=== PATIENT | female | born 1945 | race Caucasian/White ===

== ENCOUNTER → 2016-04-26 | Outpatient (CLI) | payer OTHER, MEDICARE ==
[2016-04-26 10:45] LABS: CALCIUM 9.4 mg/dL (8.7-10.7); POTASSIUM 4.5 meq/L (3.8-5.2)
== END ==
LOC: MOB LAB 09:38
PROVIDERS: ATTEND Nurse Practitioner Women's Health
DX: I10 Essential (primary) hypertension (principal); M81.0 Age-related osteoporosis without current pathological fracture
CPT/HCPCS: 36415; 80048

== ENCOUNTER → 2016-04-27 | Outpatient (CLI) | payer OTHER, MEDICARE | LOC: MMPC 09:00 | PROVIDERS: ATTEND Nurse Practitioner Women's Health | DX: M81.0 Age-related osteoporosis without current pathological fracture (principal) | CPT/HCPCS: G0463; J0897 ==

== ENCOUNTER → 2016-08-10 | Outpatient (CLI) | payer OTHER, MEDICARE ==
[2016-08-10 17:48] LABS: HEMATOCRIT 37.5 % (37.0-47.0); HEMOGLOBIN 12.8 g/dL (12.0-16.0); MEAN CORPUSCULAR HEMOGLOBIN 28.9 PG (27-31); MEAN CORPUSCULAR HGB CONC 34.1 g/dL (33-37); MEAN CORPUSCULAR VOLUME 84.7 FL (81-99); MEAN PLATELET VOLUME 9.4 FL (7.4-12.2); RED BLOOD COUNT 4.43 10^6/uL (4.20-5.40)
[2016-08-10 18:11] LABS: FREE T4 (FREE THYROXINE) 0.94 ng/dL (0.93-1.71)
[2016-08-10 18:29] LABS: FERRITIN 21.8 ng/mL (12.00-336.70)
== END ==
LOC: MOB LAB 15:05
PROVIDERS: ATTEND Nurse Practitioner Family
DX: D50.9 Iron deficiency anemia, unspecified (principal); H53.2 Diplopia; I10 Essential (primary) hypertension
CPT/HCPCS: 82728; 84439; 84443; 84445; 84481; 85027; 86376; 86800; 99214

== ENCOUNTER → 2016-08-15 | Outpatient (CLI) | payer OTHER, MEDICARE | LOC: MRI 09:52 | PROVIDERS: ATTEND Nurse Practitioner Family | DX: H53.2 Diplopia (principal) | CPT/HCPCS: 36415; 82565; 84520 ==

== ENCOUNTER → 2016-08-16 | Outpatient (CLI) | payer OTHER, MEDICARE ==
--- NOTE | 2016-08-16 22:01 | DI ---
MRI BRAIN SCAN WITHOUT AND WITH IV CONTRAST, 08/16/2016 9:51 AM: Clinical History: Diplopia. Previous Exam: None at this facility. Sequences: Axial and sagittal T1 pre contrast and axial and coronal post contrast; axial T2 and FLAIR . Diffusion weighted images with ADC mapping are also performed. 15 mL of ProHance (279.3 mg/mL) was injected IV. The fourth ventricle is of normal size, shape, position and contour. The third and lateral ventricles are mildly dilated but are otherwise normal. There multiple small punctate hyperintensities in both cerebral hemispheres in the watershed territory in this probably is secondary to mild small vessel is chemic disease. The Virchow-Osvaldo perivascular spaces are quite prominent bilaterally in the cerebral hemispheres as well as in the brainstem but these are still within normal limits. 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 There is no evidence of mass effect on the optic chiasm and there are i s no cavernous carotid aneurysm. There are no abnormal enhancing lesions. Scans through the orbits sh ow no proptosis or evidence of an intraconal or extraconal mass. All of the extraocular muscles are w ell-defined and are normal with the exception of the inferior oblique muscles which are quite small a nd therefore normally difficult to visualize. Diffusion weighted imaging with ADC mapping is normal. There is only mild cerebral atrophy. There are no extracerebral mantels or shift of the midline struc tures. The paranasal sinuses are normal. Readin. There are multiple small punctate hyperintensities in the watershed territories bilaterally that probably represent mild small vessel ischemic disease. The Virchow-Osvaldo perivascular spaces are prom inent in the brainstem as well as the cerebrum but these are still within normal limits. 2. There is no abnormality of the visual pathway from the occipital lobes to the orbits. The extraoc ular muscles are normal and there is no intraconal or extraconal mass. No abnormality of the cavernou s sinus is identified. 3. Mild cerebral atrophy. Incidental finding of an "empty sella".
== END ==
LOC: MRI 09:47
PROVIDERS: ATTEND Nurse Practitioner Family
DX: D49.89 Neoplasm of unspecified behavior of other specified sites (principal); I99.8 Other disorder of circulatory system; G31.9 Degenerative disease of nervous system, unspecified
CPT/HCPCS: 70553

== ENCOUNTER → 2016-10-17 | Outpatient (CLI) | payer OTHER, MEDICARE | LOC: MMPC 09:00 | PROVIDERS: ATTEND Nurse Practitioner Family | DX: I10 Essential (primary) hypertension (principal); F39 Unspecified mood [affective] disorder; K21.9 Gastro-esophageal reflux disease without esophagitis | CPT/HCPCS: 99214 ==

== ENCOUNTER → 2016-10-20 | Outpatient (CLI) | payer OTHER, MEDICARE ==
[2016-10-25 13:32] LABS: IGF1 ZSCORE -0.52 SD (())
== END ==
LOC: MOB LAB 08:44
PROVIDERS: ATTEND Nurse Practitioner Family
DX: E23.6 Other disorders of pituitary gland (principal)
CPT/HCPCS: 36415; 84146; 84305